=== PATIENT | female | born 1950 | race Caucasian/White ===

== ENCOUNTER 2017-09-19 18:03 | Emergency (ER) | payer SELFPAY ==
[~2017-09-19] VITALS: Ht 162.6 cm; Wt 68.0 kg
[2017-09-19] MEDS ORDERED: IV NS 0.9% 1,000 ML BAG IV ONE (18:30)
[2017-09-19 18:40] LABS: BASOPHILS % (AUTO) 0.4 % (0.0-2.0); EOSINOPHILS # (AUTO) 0.1 /CMM (0.0-0.7); EOSINOPHILS % (AUTO) 0.9 % (0.0-6.0); HEMATOCRIT 39 % (33-45); HEMOGLOBIN 13.1 g/dL (11.5-14.8); LYMPHOCYTES % (AUTO) 17.3 % (20.0-44.0); MEAN CORPUSCULAR HEMOGLOBIN 29 PG (26.0-33.0); MEAN CORPUSCULAR HGB CONC 33 g/dl (31.0-36.0); MEAN CORPUSCULAR VOLUME 87 fL (82-100); MONOCYTES # (AUTO) 0.4 /CMM (0.1-1.30); MONOCYTES % (AUTO) 3.3 % (2.0-12.0); NEUTROPHILS # (AUTO) 8.9 /CMM (1.8-8.9); NEUTROPHILS % (AUTO) 78.1 % (43.0-81.0); PLATELET COUNT (AUTO) 309 /CMM (150-450); RDW COEFFICIENT OF VARIATION 13.1 (11.5-15.0); RED BLOOD CELL COUNT(AUTO) 4.52 MIL/uL (4.0-5.2); WHITE BLOOD COUNT (AUTO) 11.4 K/uL (4.3-11.0)
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
[2017-09-19 18:51] LABS: CALCIUM, SERUM 9.1 mg/dL (8.5-10.1); CREATININE 0.7 mg/dL (0.6-1.3); POTASSIUM 3.5 mmol/L (3.5-5.1)
[2017-09-19 18:57] LABS: ALBUMIN 3.7 g/dL (3.4-5.0); BILIRUBIN,DIRECT 0.1 mg/dL (0.0-0.2); BILIRUBIN,TOTAL 0.2 mg/dL (0.2-1.0); TOTAL PROTEIN, SERUM 8.4 g/dL (6.4-8.2)
--- NOTE | 2017-09-19 19:54 | NUR ---
PT TAKEN TO CT.
--- NOTE | 2017-09-19 20:00 | NUR ---
DIFFERENT TRANSLATORS CALLED TO HELP BUT PT REFUSES/ UNABLE TO GIVE INFO NOR URINE SAMPLE, PEED ON THE FLOOR.
[2017-09-19 20:08] LABS: ACETAMINOPHEN < 2 ug/ml (10-30); SALICYLATE 1.2 mg/dL (2.8-20.0)
--- NOTE | 2017-09-19 21:14 | NUR ---
MARITO MUSE (DAUGHTER)
--- NOTE | 2017-09-19 22:20 | NUR ---
IV removed. Catheter intact and site benign. Pressure and 4x4 applied to site. No bleeding noted. Pt ambulatory with a steady gait.
--- NOTE | 2017-09-19 22:30 | NUR ---
Patient discharged to home in stable condition. Written and verbal after care instructions given. Patient/FAMILY verbalizes understanding of instruction.
[2017-09-19 22:40] VITALS: BP 141/88
== END 2017-09-19 22:41 | disposition home or self-care (01) ==
LOC: EDBD 18:05 → ER 18:05
DX: R41.82 Altered mental status, unspecified (principal)
CPT/HCPCS: 36415; 70450; 80048; 80076; 80329; 82140; 85025; 96360; 99285; A4606; G0480 ×2; J7030 ×2; Z7610